=== PATIENT | female | born 1955 | race African-American/Black ===

== ENCOUNTER 2019-07-24 10:27 | Emergency (ER) | payer SELFPAY ==
[2019-07-24] MEDS ORDERED: Ketorolac 60 MG/2 ML SDV IM ONE (11:18)
--- NOTE | 2019-07-24 11:25 | EDM.PDOC ---
ED HPI GENERAL MEDICAL PROBLEM - General Chief Complaint: Upper Extremity Injury/Pain Stated Complaint: LT ARM PAIN Time Seen by Provider: 07/24/19 11:00 Source of Information: Reports: Patient, Family (son), RN Notes Reviewed History Limitations: Reports: Language Barrier (pt is not primarily serbian speaking, but the son present in the room understands Estonian and can translate) - History of Present Illness INITIAL COMMENTS - FREE TEXT/NARRATIVE: Patient is a 64-year-old female who presents to the ED for the evaluation of left shoulder/arm pain. The patient is again not primarily Estonian speaking, but however her son is present and translates well. He states that the patient has been complaining of left shoulder/arm pain since yesterday. The son states that she would rate this at around 9 out of 10, is a constant dull ache, and does not come and go. The patient had taken a dose of Aleve yesterday for the pain, but does not think it helped much. The son states that the patient had issues with her shoulder many years ago, and did not have much done with this at this time. She does not have a primary care provider, she does have a history of high blood pressure, is supposed be taking medication for this but currently is not. The patient states that she really has pain in her left shoulder with any sort of movement of her arm at all. She denies any sort of trauma to the area, and a lifting accident, or fall. The patient notes that she does have some pain that radiates into her neck at times. She denies any numbness or tingling into the fingers. She further denies any chest pain, or discomfort, or any shortness of breath. Other Treatments [employer]: Aleve Left Arm Pain Score (Numeric/FACES): 8 - Related Data Allergies Allergy/AdvReac Type Severity Reaction Status Date / Time Penicillins Allergy Other Verified 07/24/19 10:55 Home Meds: Home Meds . [No Known Home Meds] 07/24/19 [History] Past Medical History Cardiovascular History: Reports: Hypertension Social & Family History - Tobacco Use Smoking Status *Q: Never Smoker - Recreational Drug Use Recreational Drug Use: No Review of Systems - Review of Systems Review Of Systems: See Below Constitutional: Denies: Chills, Fever Eyes: Reports: No Symptoms Ears: Reports: No Symptoms Nose: Reports: No Symptoms Mouth/Throat: Reports: No Symptoms Respiratory: Denies: Shortness of Breath, Cough Cardiovascular: Denies: Chest Pain GI/Abdominal: Reports: No Symptoms Genitourinary: Reports: No Symptoms Musculoskeletal: Reports: Neck Pain (radiation of pain from left arm into neck) , Shoulder Pain (Left shoulder), Arm Pain (left arm pain). Denies: Hand Pain, Joint Swelling Skin: Reports: No Symptoms Neurological: Denies: Numbness, Tingling Psychiatric: Reports: No Symptoms ED EXAM, GENERAL - Physical Exam Exam: See Below Exam Limited By: Language Barrier (pt not primarily serbian speaking, but son translates and pt is able to provide good physical exam) General Appearance: Alert, WD/WN, No Apparent Distress Eye Exam: Bilateral Eye: EOMI, Normal Inspection, PERRL Ears: Normal External Exam Nose: Normal Inspection Throat/Mouth: Normal Inspection, Normal Lips, Normal Teeth, Normal Gums, Normal Oropharynx, Normal Voice, No Airway Compromise Head: Atraumatic, Normocephalic Neck: Normal Inspection, Supple, Full Range of Motion, Tender Lateral (Left sided neck tenderness with palpation) Respiratory/Chest: No Respiratory Distress, Lungs Clear, Normal Breath Sounds, No Accessory Muscle Use, Chest Non-Tender Cardiovascular: Normal Peripheral Pulses, Regular Rate, Rhythm, No Murmur Peripheral Pulses: 3+: Radial (L), Radial (R) GI/Abdominal: Normal Bowel Sounds, Soft, Non-Tender, No Distention, No Mass Back Exam: Normal Inspection, Full Range of Motion Extremities: Normal Inspection, No Pedal Edema, Normal Capillary Refill, Limited Range of Motion (of left shoulder d/t pain) Neurological: Alert, Oriented, Normal Cognition, No Motor/Sensory Deficits Psychiatric: Normal Affect, Normal Mood Skin Exam: Warm, Dry, Intact, Normal Color, No Rash EKG INTERPRETATION EKG Date: 07/24/19 Time: 11:22 Rhythm: NSR Rate (Beats/Min): 89 [place]: LAD-Left [place] Deviation P-Wave: Present QRS: Normal ST-T: Normal QT: Normal Comparison: NA - No Prior EKG EKG Interpretation Comments: no acute ischemic changes noted. Reviewed with Dr. Vu. Course - Vital Signs Last Recorded V/S: Last Vital Signs Temp 98.2 F 07/24/19 10:55 Pulse 90 07/24/19 10:55 Resp 18 07/24/19 10:55 BP 161/95 H 07/24/19 10:55 Pulse Ox 97 07/24/19 10:55 - Orders/Labs/Meds Orders: Active Orders 24 hr Category Date Time Status EKG Documentation Completion [RC] STAT Care 07/24/19 11:16 Ordered Chest 1V Frontal [CR] Stat Exams 07/24/19 11:16 Ordered Labs: Laboratory Tests 07/24/19 07/24/19 07/24/19 Range/Units 11:30 11:30 11:30 WBC 9.88 (3.98-10.04) K/mm3 RBC 4.31 (3.98-5.22) M/mm3 Hgb 12.1 (11.2-15.7) gm/dl Hct 38.2 (34.1-44.9) % MCV 88.6 (79.4-94.8) fl MCH 28.1 (25.6-32.2) pg MCHC 31.7 L (32.2-35.5) g/dl RDW Std Deviation 41.4 (36.4-46.3) fL Plt Count 203 (182-369) K/mm3 MPV 11.5 (9.4-12.3) fl Neutrophils % (Manual) 85 H (40-60) % Band Neutrophils % 0 (0-10) % Lymphocytes % (Manual) 13 L (20-40) % Atypical Lymphs % 0 % Monocytes % (Manual) 2 (2-10) % Eosinophils % (Manual) 0 L (0.7-5.8) % Basophils % (Manual) 0 L (0.1-1.2) Platelet Estimate Adequate RBC Morph Comment Normal PT 10.5 (9.7-12.0) SECONDS INR 0.96 APTT 28 (22-31) SECONDS Sodium 140 (136-145) mEq/L Potassium 3.6 (3.5-5.1) mEq/L Chloride 105 (98-107) mEq/L Carbon Dioxide 27 (21-32) mEq/L Anion Gap 11.6 (5-15) BUN 9 (7-18) mg/dL Creatinine 0.7 (0.55-1.02) mg/dL Est Cr Clr Drug Dosing 83.73 mL/min Estimated GFR (MDRD) > 60 (>60) mL/min BUN/Creatinine Ratio 12.9 L (14-18) Glucose 113 (80-115) mg/dL Calcium 9.2 (8.5-10.1) mg/dL Magnesium 1.8 (1.8-2.4) mg/dl Total Bilirubin 0.5 (0.2-1.0) mg/dL AST 11 L (15-37) U/L ALT 15 (14-59) U/L Alkaline Phosphatase 86 (46-116) U/L Troponin I < 0.017 (0.00-0.056) ng/mL NT-Pro-B Natriuret Pep (0-125) pg/mL Total Protein 8.1 (6.4-8.2) g/dl Albumin 3.5 (3.4-5.0) g/dl Globulin 4.6 gm/dL Albumin/Globulin Ratio 0.8 L (1-2) 07/24/19 Range/Units 11:30 WBC (3.98-10.04) K/mm3 RBC (3.98-5.22) M/mm3 Hgb (11.2-15.7) gm/dl Hct (34.1-44.9) % MCV (79.4-94.8) fl MCH (25.6-32.2) pg MCHC (32.2-35.5) g/dl RDW Std Deviation (36.4-46.3) fL Plt Count (182-369) K/mm3 MPV (9.4-12.3) fl Neutrophils % (Manual) (40-60) % Band Neutrophils % (0-10) % Lymphocytes % (Manual) (20-40) % Atypical Lymphs % % Monocytes % (Manual) (2-10) % Eosinophils % (Manual) (0.7-5.8) % Basophils % (Manual) (0.1-1.2) Platelet Estimate RBC Morph Comment PT (9.7-12.0) SECONDS INR APTT (22-31) SECONDS Sodium (136-145) mEq/L Potassium (3.5-5.1) mEq/L Chloride (98-107) mEq/L Carbon Dioxide (21-32) mEq/L Anion Gap (5-15) BUN (7-18) mg/dL Creatinine (0.55-1.02) mg/dL Est Cr Clr Drug Dosing mL/min Estimated GFR (MDRD) (>60) mL/min BUN/Creatinine Ratio (14-18) Glucose (80-115) mg/dL Calcium (8.5-10.1) mg/dL Magnesium (1.8-2.4) mg/dl Total Bilirubin (0.2-1.0) mg/dL AST (15-37) U/L ALT (14-59) U/L Alkaline Phosphatase (46-116) U/L Troponin I (0.00-0.056) ng/mL NT-Pro-B Natriuret Pep 370 H (0-125) pg/mL Total Protein (6.4-8.2) g/dl Albumin (3.4-5.0) g/dl Globulin gm/dL Albumin/Globulin Ratio (1-2) Meds: Medications Discontinued Medications Generic Name Dose Route Start Last Admin Trade Name Freq PRN Reason Stop Dose Admin Ketorolac Tromethamine 60 mg 07/24/19 11:18 07/24/19 11:41 Toradol IM 07/24/19 11:19 60 mg ONETIME ONE Administration - Re-Assessments/Exams Free Text/Narrative Re-Assessment/Exam: 07/24/19 11:28 Patient presents to the ED for evaluation of left shoulder/arm pain. Due to her age and gender I will check to make sure there is no cardiac component for her left arm pain. Although my suspicion is highly more of a musculoskeletal origin in nature. EKG is done and I do not appreciate any sort of acute ischemic changes at this time. I did also order a 60 mg IM Toradol injection to see if this doesn't help her pain. 07/24/19 12:35 Patient's labs are done, and do not demonstrate any acute abnormalities at this time. It is likely that the cause of her pain is more musculoskeletal origin in nature. The patient states that she did get some relief with the Toradol. Will give general recommendations and discharge her home. Departure - Departure Time of Disposition: 12:35 Disposition: Home, Self-Care 01 Condition: Fair Clinical Impression: Left shoulder pain Qualifiers: Chronicity: acute Qualified Code(s): M25.512 - Pain in left shoulder - Discharge Information *PRESCRIPTION DRUG MONITORING PROGRAM REVIEWED*: No *COPY OF PRESCRIPTION DRUG MONITORING REPORT IN PATIENT BENNIE: No Instructions: Shoulder Range of Motion Exercises, Shoulder Pain, [place]-ge-Sanm Referrals: PCP,None [Primary Care Provider] - Forms: ED Department Discharge Additional Instructions: You have been evaluated in the ED for your left shoulder/arm pain. You did have a cardiac workup to make sure there was no underlying cardiac etiology for your left shoulder/arm pain. Everything was within normal limits, there is no sign of any sort of cardiac abnormality that should be causing her symptoms today. Please use ice/heat as tolerated to the affected area. You may take Tylenol 500 mg or ibuprofen 600mg q6 hrs for pain relief. Please do so until you have a tolerable level of pain with activity. Do not exceed 4000mg Tylenol or 3200mg ibuprofen in a 24 hour time period. You should establish care with a primary care physician, our clinic number , any family practice provider would be able to provide you with the services. Please schedule an appointment for re-evaluation in roughly 1-2 weeks ' time. Please return to ED if your symptoms should change or worsen. - My Orders Last 24 Hours: My Active Orders 07/24/19 11:16 EKG Documentation Completion [RC] STAT Chest 1V Frontal [CR] Stat - Assessment/Plan Last 24 Hours: My Active Orders 07/24/19 11:16 EKG Documentation Completion [RC] STAT Chest 1V Frontal [CR] Stat
--- NOTE | 2019-07-26 06:46 | CR ---
Chest: Portable view of the chest was obtained. Comparison: No prior chest x-ray. Heart size is felt to be slightly enlarged. Tortuous thoracic aorta is seen. Lungs are clear with no acute parenchymal change. Bony structures are grossly intact. Impression: 1. Heart size is mildly enlarged. Nothing acute is appreciated. Diagnostic code #2
== END 2019-07-24 12:53 | disposition home or self-care (01) ==
LOC: JD.ED 10:27
DX: M25.512 Pain in left shoulder (principal); I10 Essential (primary) hypertension; Z88.0 Allergy status to penicillin
CPT/HCPCS: 36415; 71045; 80053; 83735; 83880; 84484; 85007; 85027; 85610; 85730; 93005; 96372; 99284; J1885